=== PATIENT | male | born 1990 | race Caucasian/White ===

== ENCOUNTER 2019-01-27 08:16 | Emergency (ER) | payer BC ==
[2019-01-27 08:31] VITALS: BP 134/81
--- NOTE | 2019-01-27 08:51 | UC ---
Lower Extremity/Ankle HPI - HPI Summary HPI Summary: 28-year-old male comes in with a chief complaint of right lower leg pain. 6 days ago the patient woke up in the morning with right upper calf pain. Pain is worse with plantar flexion and dorsiflexion of the right ankle. Also worse with palpation of the upper calf. No pain with range of motion of the knee. The pain does radiate sometimes up into the back of the knee and the back of the upper thigh into the lower hamstring. No chest pain no shortness of breath. No known trauma. Patient's tried some ibuprofen and ice and rest which does help briefly but as soon as he starts using the leg and it gets worse. - History of Current Complaint Chief Complaint: UCLowerExtremity Stated Complaint: RT LEG PAIN Time Seen by Provider: 01/27/19 08:31 Pain Intensity: 2 - Allergies/Home Medications Allergies/Adverse Reactions: Allergies Allergy/AdvReac Type Severity Reaction Status Date / Time No Known Allergies Allergy Verified 01/27/19 08:24 PMH/Surg Hx/FS Hx/Imm Hx Previously Healthy: Yes - Surgical History Surgical History: None - Family History Known Family History: Positive: Hypertension - Social History Alcohol Use: None Substance Use Type: None Smoking Status (MU): Never Smoked Tobacco Review of Systems All Other Systems Reviewed And Are Negative: Yes Constitutional: Positive: Negative Skin: Positive: Negative Eyes: Positive: Negative ENT: Positive: Negative Respiratory: Positive: Negative Cardiovascular: Positive: Negative Gastrointestinal: Positive: Negative Motor: Positive: Negative Neurovascular: Positive: Negative Musculoskeletal: Positive: Other: - SEE HPI Neurological: Positive: Negative Psychological: Positive: Negative Is Patient Immunocompromised?: No Physical Exam Triage Information Reviewed: Yes Appearance: Well-Appearing, No Pain Distress, Well-Nourished Vital Signs: Initial Vital Signs Temp 98.2 F 01/27/19 08:25 Pulse 67 01/27/19 08:25 Resp 16 01/27/19 08:25 BP 134/81 01/27/19 08:25 Pulse Ox 100 01/27/19 08:25 Vital Signs Reviewed: Yes Eye Exam: Normal Eyes: Positive: Conjunctiva Clear Neck: Positive: Supple Respiratory: Positive: No respiratory distress Musculoskeletal: Positive: Other: Neurological: Positive: Alert Psychological Exam: Normal Psychological: Positive: Normal Response To Family, Age Appropriate Behavior Skin Exam: Normal Lower Extremity Course/Dx - Course Course Of Treatment: Patient Name: NILDA CAMPBELL Medical Record#: [id number] Ordering Physician: Raj Hudson MD Acct.#: [id number] : 1990 Age: 28 Sex: M Location: [facility] Exam Date: 01/27/19841 ADM Status: REG ER Order Information: TIBIA FIBULA RIGHT Accession Number: [id number] CPT: 43784 HISTORY: RT UPPER CALF PAIN . COMPARISONS: None relevant available at the time of dictation. VIEWS: 2, Frontal and lateral views of the right foreleg FINDINGS: BONE DENSITY: Normal. BONES: There is no displaced fracture. JOINTS: There is no arthropathy. ALIGNMENT: There is no dislocation. SOFT TISSUES: Unremarkable. OTHER FINDINGS: None. IMPRESSION: NO ACUTE OSSEOUS INJURY. IF SYMPTOMS PERSIST, RECOMMEND REPEAT IMAGING. <Electronically signed by Kei Perkins MD in OV> 01/27/19904 Patient Name: NILDA CAMPBELL Medical Record#: [id number] Ordering Physician: Raj Hudson MD Acct.#: [id number] : 1990 Age: 28 Sex: M Location: [facility] Exam Date: 01/27/19841 ADM Status: REG ER Order Information: VL LOWER EXT VEINS RIGHT Accession Number: [id number] CPT: 31717 INDICATION: Progressive proximal RIGHT calf pain. COMPARISON: January 27, 2019 radiographs TECHNIQUE: Lott scale, color Doppler, and spectral analysis of the deep veins of the RIGHT lower extremity. Vessel compression, phasicity, and augmentation assessed. REPORT: The RIGHT common femoral, great saphenous, profunda femoral, femoral, popliteal, peroneal, and posterior tibial veins are patent. Within the grossly midline RIGHT gastrocnemius musculature proximally there is a 4 cm length of occlusive thrombosis of a gastrocnemius vein corresponding with the region of symptoms as directed by the patient at the time of the exam. Patency of the LEFT common femoral vein documented. IMPRESSION: Within the grossly midline RIGHT gastrocnemius musculature proximally there is a 4 cm length of occlusive thrombosis of a gastrocnemius vein corresponding with the region of symptoms as directed by the patient at the time of the exam. <Electronically signed by Praneeth Jaramillo MD in OV> 01/27/19 9955 I discussed the x-ray and ultrasound results with the patient and his . With the clot being in the gastrocnemius which is a deep vein we will start the patient on his arrival to 15 mg by mouth twice a day for 21 days. Within that time the patient is to follow-up with his primary care physician. Also giving him the [facility] information if he cannot get into see his primary care physician. I gave him the up-to-date patient indication for deep venous thrombosis. At this time he has no chest pain or shortness of breath. The patient know that if anything got worse he got chest pain shorts of breath or did not feel well he needs to get reevaluated right away in the emergency department. - Differential Dx/Diagnosis Provider Diagnosis: Right leg DVT Discharge - Sign-Out/Discharge Documenting (check all that apply): Patient Departure All imaging exams completed and their final reports reviewed: Yes - Discharge Plan Condition: Stable Disposition: HOME Prescriptions: Rivaroxaban TAB(*) [Xarelto 15 mg(*)] 15 mg PO BID #42 tab Patient Education Materials: Deep Vein Thrombosis (ED), Deep Vein Thrombosis Prevention (ED) Referrals: Markus Robbins JR, PA [Primary Care Provider] - [facility] [Outside] Additional Instructions: FOLLOW UP WITH YOUR PRIMARY CARE DOCTOR OR [facility]. GO TO THE EMERGENCY DEPARTMENT IF YOUR CONDITION WORSENS; CHEST PAIN, SHORTNESS OF BREATH, YOU FEEL ILL OR ANY QUESTIONS OR CONCERNS. - Billing Disposition and Condition Condition: STABLE Disposition: Home
== END 2019-01-27 11:02 | disposition home or self-care (01) ==
LOC: UCEAST 08:16
DX: I82.4Z1 Acute embolism and thrombosis of unspecified deep veins of right distal lower extremity (principal)
CPT/HCPCS: 99212; G0463

== ENCOUNTER 2019-02-27 13:41 | Emergency (ER) | payer BC ==
[2019-02-27 14:13] LABS: ABS Eosinophils 0.1 10^3/ul (0-0.6); ABS Lymphocytes 2.2 10^3/ul (1.0-4.8); ABS Monocytes 0.7 10^3/ul (0-0.8); ABS Neutrophils 4.1 10^3/ul (1.5-7.7); Eosinophil % 1.8 %; Hematocrit 44 % (42-52); Lymphocyte % 30.3 %; Mean Corpuscular HGB Conc 34 g/dL (31-36); Mean Corpuscular Hemoglobin 29 pg (27-31); Mean Corpuscular Volume 83 fL (80-94); Mean Platelet Volume 9.4 fL (7.4-10.4); Nucleated Red Blood Cells % 0.1; Platelet Count 224 10^3/uL (150-450); Red Blood Count 5.26 10^6 /uL (4.18-5.48); Red Cell Distribution Width 14 % (10-15); White Blood Count 7.1 10^3/uL (3.5-10.8)
[2019-02-27 14:18] LABS: INR 1.58 (0.82-1.09)
[2019-02-27 14:36] LABS: Albumin 4.2 g/dL (3.2-5.2); Calcium 9.1 mg/dL (8.6-10.3); Potassium 4.3 mmol/L (3.5-5.0); Total Bilirubin 0.4 mg/dL (0.2-1.0)
[2019-02-27 14:42] LABS: Albumin/Globulin Ratio 1.5 (1-3); BUN/Creatinine Ratio 12.8 (8-20); EGFR African American 83.2 (>60); EGFR Non-African American 68.8 (>60); Globulin 2.8 g/dL (2-4)
[2019-02-27] MEDS ORDERED: Iohexol 350* (CONTRAST) 500 ML MDV IV ONE (14:58)
--- NOTE | 2019-02-27 15:18 | ED ---
HPI Chest Pain - HPI Summary HPI Summary: This patient is a 28 year old M presenting to [facility] with a chief complaint of CP since a couple of hours ago. The CC is described as intermittent CP. 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 The patient initially rates the pain 3/10 in severity, but notes that his CP is gone now. Chest pain is described as a heaviness. PT was scared about his CP because it hurt and since he has had DVT in his right leg. He states the cause of his DVT is unknown, onset about a month ago, and is on Xareleto for it. Pt is feeling fatigued at present. He is not a smoker or drinker, has not travelled in a car or airplane for long periods of time, and has never had surgery. Pt reports fatigue, dizziness, and some sweating per his peers, but denies SOB, sour tasting in mouth, fever, chills, erythema of eyes, sore throat, cough, abdominal pain, N/V, dysuria, hematuria, myalgia, edema, or rash. He states he is not being treated for his BP and has never been treated for acid reflux in the past. Pt feels fine right now, but is tired despite sleeping enough. His PCP is Dr. Robbins. Pts grandfather had 5-6 MIs and his dad had a couple of minor MIs in his 50s. - History of Current Complaint Chief Complaint: EDChestPainROMI Time Seen by Provider: 02/27/19 13:52 Hx Obtained From: Patient Onset/Duration: Started Hours Ago, Resolved Time of Onset: 13:50 Timing: Intermittent Initial Severity: Mild Current Severity: None Pain Intensity: 3 Pain Scale Used: 0-10 Numeric Chest Pain Location: Upper Sternal - mid sternal Chest Pain Radiates: No Character: Heaviness Aggravating Factor(s): Nothing Alleviating Factor(s): Nothing Associated Signs and Symptoms: Positive: Chest Pain, Dizziness, Diaphoresis, Other: - reports chest pain, fatigue, dizziness, and some sweating per his peers , but denies SOB, sour tasting in mouth, fever, chills, erythema of eyes, sore throat, cough, abdominal pain, N/V, dysuria, hematuria, myalgia, edema, or rash. Negative: Shortness of Breath, Fever, Chills, Nausea, Cough, Productive Cough, Nonproductive Cough, Abdominal Pain, Vomiting, Edema - Allergy/Home Medications Allergies/Adverse Reactions: Allergies Allergy/AdvReac Type Severity Reaction Status Date / Time No Known Allergies Allergy Verified 02/27/19 13:57 PMH/Surg Hx/FS Hx/Imm Hx Endocrine/Hematology History: Denies: Hx Diabetes Cardiovascular History: Denies: Hx Hypertension - Immunization History Date of Tetanus Vaccine: UTD Date of Influenza Vaccine: 2012 Infectious Disease History: No Infectious Disease History: Denies: Traveled Outside the [place] in Last 30 Days - Family History Known Family History: Positive: Hypertension, Other - grandfather had 5-6 MIs, father had a couple of minor MIs during 50s - Social History Alcohol Use: None Substance Use Type: Reports: None Smoking Status (MU): Never Smoked Tobacco Review of Systems Constitutional: Other - NEGATIVE - SOUR TASTE IN MOUTH Positive: Fatigue, Skin Diaphoresis. Negative: Fever, Chills Negative: Erythema Negative: Sore Throat Positive: Chest Pain Negative: Shortness Of Breath, Cough Negative: Abdominal Pain, Vomiting, Nausea Negative: dysuria, hematuria Negative: Myalgia, Edema Negative: Rash Neurological: Other - positive - dizziness All Other Systems Reviewed And Are Negative: Yes Physical Exam - Summary Physical Exam Summary: Constitutional: Well-developed, Well-nourished, Alert. (-) Distressed Skin: Warm, Dry HENT: Normocephalic; Atraumatic Eyes: Conjunctiva normal Neck: Musculoskeletal ROM normal neck. (-) JVD, (-) Stridor, (-) Tracheal deviation Cardio: Rhythm regular, rate normal, Heart sounds normal; Intact distal pulses; The pedal pulses are 2+ and symmetric. Radial pulses are 2+ and symmetric. (-) Murmur Pulmonary/Chest wall: Effort normal. (-) Respiratory distress, (-) Wheezes, (-) Rales Abd: Soft, (-) tenderness, (-) Distension, (-) Guarding, (-) Rebound Musculoskeletal: (-) Edema Lymph: (-) Cervical adenopathy Neuro: Alert, Oriented x3 Psych: Mood and affect Normal Triage Information Reviewed: Yes Vital Signs On Initial Exam: Initial Vitals Temp Pulse Resp BP Pulse Ox 98.2 F 86 20 143/91 97 02/27/19 13:45 02/27/19 13:45 02/27/19 13:45 02/27/19 13:45 02/27/19 13:45 Vital Signs Reviewed: Yes Diagnostics - Vital Signs Vital Signs Temp Pulse Resp BP Pulse Ox 02/27/19 14:28 67 16 115/77 97 02/27/19 14:00 72 17 98 02/27/19 13:58 76 19 144/105 98 02/27/19 13:57 70 17 99 02/27/19 13:45 98.2 F 86 20 143/91 97 - Laboratory Lab Results: Lab Results 02/27/19 02/27/19 02/27/19 Range/Units 14:07 14:07 14:07 WBC 7.1 (3.5-10.8) 10^3/uL RBC 5.26 (4.18-5.48) 10^6 /uL Hgb 15.0 (14.0-18.0) g/dL Hct 44 (42-52) % MCV 83 (80-94) fL MCH 29 (27-31) pg MCHC 34 (31-36) g/dL RDW 14 (10-15) % Plt Count 224 (150-450) 10^3/uL MPV 9.4 (7.4-10.4) fL Neut % (Auto) 57.8 % Lymph % (Auto) 30.3 % Preston % (Auto) 9.5 % Eos % (Auto) 1.8 % Baso % (Auto) 0.6 % Absolute Neuts (auto) 4.1 (1.5-7.7) 10^3/ul Absolute Lymphs (auto) 2.2 (1.0-4.8) 10^3/ul Absolute Monos (auto) 0.7 (0-0.8) 10^3/ul Absolute Eos (auto) 0.1 (0-0.6) 10^3/ul Absolute Basos (auto) 0.0 (0-0.2) 10^3/ul Absolute Nucleated RBC 0.0 10^3/ul Nucleated RBC % 0.1 INR (Anticoag Therapy) 1.58 H (0.82-1.09) Sodium 137 (135-145) mmol/L Potassium 4.3 (3.5-5.0) mmol/L Chloride 106 (101-111) mmol/L Carbon Dioxide 26 (22-32) mmol/L Anion Gap 5 (2-11) mmol/L BUN 16 (6-24) mg/dL Creatinine 1.25 H (0.67-1.17) mg/dL Est GFR ( Amer) 83.2 (>60) Est GFR (Non-Af Amer) 68.8 (>60) BUN/Creatinine Ratio 12.8 (8-20) Glucose 104 H (70-100) mg/dL Calcium 9.1 (8.6-10.3) mg/dL Total Bilirubin 0.40 (0.2-1.0) mg/dL AST 17 (13-39) U/L ALT 28 (7-52) U/L Alkaline Phosphatase 66 (34-104) U/L Troponin I 0.00 (<0.04) ng/mL Total Protein 7.0 (6.4-8.9) g/dL Albumin 4.2 (3.2-5.2) g/dL Globulin 2.8 (2-4) g/dL Albumin/Globulin Ratio 1.5 (1-3) Result Diagrams: 02/27/19 14:07 02/27/19 14:07 Lab Statement: Any lab studies that have been ordered have been reviewed, and results considered in the medical decision making process. - CT CTA CHEST CT Interpretation Completed By: Radiologist Summary of CT Findings: NO PULMONARY ARTERIAL FILLING DEFECT TO SUGGEST PULMONARY EMBOLISM. THESE RESULTS WERE REVIEWED BY DR. STEPHENS. - EKG 1355 Cardiac Rate: NL - 72 BPM EKG Rhythm: Sinus Rhythm Summary of EKG Findings: sinus rhythm, 72 BPM, no STEMI Chest Pain Course/Dx - Course Course Of Treatment: This patient is a 28 year old M presenting to [facility] with a chief complaint of CP since a couple of hours ago. The CC is described as intermittent CP. 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 The patient initially rates the pain 3/10 in severity, but notes that his CP is gone now. Chest pain is described as a heaviness. PT was scared about his CP because it hurt and since he has had DVT in his right leg. He states the cause of his DVT is unknown, onset about a month ago, and is on Xareleto for it. Pt is feeling fatigued at present. He is not a smoker or drinker, has not travelled in a car or airplane for long periods of time, and has never had surgery. Pt reports fatigue, dizziness, and some sweating per his peers, but denies SOB, sour tasting in mouth, fever, chills, erythema of eyes, sore throat, cough, abdominal pain, N/V, dysuria, hematuria, myalgia, edema, or rash. He states he is not being treated for his BP and has never been treated for acid reflux in the past. Pt feels fine right now, but is tired despite sleeping enough. His PCP is Dr. Robbins. Pts grandfather had 5-6 MIs and his dad had a couple of minor MIs in his 50s. Physical Exam showed no abnormal findings. Laboratory Results show INR 1.58, creatinine 1.25, glucose 104, and first and second trop were negative. EKG at 1355: sinus rhythm, 72 BPM, no STEMI. CTA CHEST IMPRESSION: NO PULMONARY ARTERIAL FILLING DEFECT TO SUGGEST PULMONARY EMBOLISM. CT (-) for PE, first and second trop were negative. Patient will be discharged home and will follow up with PCP in 3 days. Patient is agreeable with conditions. - Diagnoses Provider Diagnoses: Chest pain Discharge - Sign-Out/Discharge Documenting (check all that apply): Patient Departure - discharge Patient Received Moderate/Deep Sedation with Procedure: No - Discharge Plan Condition: Stable Disposition: HOME Patient Education Materials: Chest Pain (ED) Referrals: Markus Robbins JR, PA [Primary Care Provider] - 3 Days Additional Instructions: Follow up with your primary care provider in 3 days. RETURN TO THE EMERGENCY DEPARTMENT FOR CHANGING OR WORSENING SYMPTOMS - Attestation Statements Document Initiated by Scribe: Yes Documenting Scribe: COSME STANLEY Provider For Whom Scribe is Documenting (Include Credential): YANNI STEPHENS MD Scribe Attestation: COSME Michel, scribed for YANNI STEPHENS MD on 02/27/19 at 4632. Status of Scribe Document: Ready
[2019-02-27 18:16] VITALS: BP 120/84
== END 2019-02-27 18:16 | disposition home or self-care (01) ==
LOC: ED 13:41
DX: S80.02XA Contusion of left knee, initial encounter (principal); S16.1XXA Strain of muscle, fascia and tendon at neck level, initial encounter; V49.40XA Driver injured in collision with unspecified motor vehicles in traffic accident, initial encounter; Y92.410 Unspecified street and highway as the place of occurrence of the external cause; M81.0 Age-related osteoporosis without current pathological fracture; M50.30 Other cervical disc degeneration, unspecified cervical region; Z88.6 Allergy status to analgesic agent; Z88.0 Allergy status to penicillin; Z88.2 Allergy status to sulfonamides; Z88.3 Allergy status to other anti-infective agents
CPT/HCPCS: 36415; 71275; 80053; 84484; 85025; 85610; 93005; 99283; Q9967